=== PATIENT | male | born 1940 | race Caucasian/White ===

== ENCOUNTER 2017-12-05 15:14 | Emergency (ER) | payer OTHER ==
[2017-12-05 15:30] VITALS: TEMP 97.6; BMI 33.0
--- NOTE | 2017-12-05 15:33 | PDOC ---
Rapid Medical Evaluation Chief Complaint: Hematuria Time Seen by Provider: 12/05/17 15:28 Medical Evaluation: Allergies Allergy/AdvReac Type Severity Reaction Status Date / Time No Known Drug Allergies Allergy Verified 12/05/17 15:28 12/05/17 15:32 pt with c/o: hematuria x 1 week, no pain, no clots, no abd pain, no bph or cancer hx pt on exam: afebrile, tachy 105 Pt ordered for type and screen, cbc,c omp, ua , ucx Pt to proceed to the ED 12/05/17 15:36 Discharge Disposition - Diagnosis Hematuria - Referrals - Patient Instructions - Post Discharge Activity
[2017-12-05 16:20] LABS: BASO % 0.6 % (0-2.0); EOS % 2.5 % (0-4.5); HEMATOCRIT 38.9 % (35.4-49); HEMOGLOBIN 12.7 GM/dL (11.7-16.9); LYMPH % 19.1 % (8-40); MCH 27.6 pg (25.7-33.7); MCHC 32.6 g/dl (32.0-35.9); MEAN CELL VOLUME 84.7 fl (80-96); MEAN PLT VOLUME 11.5 fl (7.5-11.1); MONO % 11.1 % (3.8-10.2); NEUT % 66.7 % (42.8-82.8); PLATELET COUNT 173 K/MM3 (134-434); RDW 15.4 % (11.9-15.9); WHITE BLOOD COUNT 8.3 K/mm3 (4.0-10.0)
[2017-12-05 16:22] LABS: URINE APPEARANCE TURBID; URINE BILIRUBIN NEGATIVE (NEGATIVE); URINE BLOOD 1+ (NEGATIVE); URINE COLOR YELLOW; URINE GLUCOSE (UA) 1+ (NEGATIVE); URINE KETONE NEGATIVE (NEGATIVE); URINE NITRITE NEGATIVE (NEGATIVE); URINE UROBILINOGEN NEGATIVE mg/dL (0.2-1.0)
[2017-12-05 16:23] LABS: URINE LEUK ESTERASE 3+ (NEGATIVE); URINE PROTEIN 1+ (NEGATIVE)
[2017-12-05 16:37] LABS: EPI CELLS RARE /HPF (FEW); URINE BACTERIA MANY /hpf (NONE SEEN); URINE MUCUS RARE
[2017-12-05 17:06] LABS: ALBUMIN 3.8 g/dl (3.4-5.0); BLOOD UREA NITROGEN 21 mg/dL (7-18); CALCIUM 8.4 mg/dL (8.5-10.1); GLUCOSE,RANDOM 232 mg/dL (74-106)
[2017-12-05 17:27] LABS: BILIRUBIN,TOTAL 0.4 mg/dL (0.2-1.0); CO2 22 mmol/L (21-32); SGOT/AST 18 U/L (15-37); SGPT/ALT 29 U/L (12-78); TOT PROT 7.6 g/dl (6.4-8.2)
[2017-12-05 17:28] LABS: ALK PHOS 87 U/L (45-117)
[2017-12-05 17:31] LABS: PLATELET ESTIMATE ADEQUATE
--- NOTE | 2017-12-05 17:54 | PDOC ---
History of Present Illness - General Chief Complaint: Hematuria Stated Complaint: BLOOD IN URINE Time Seen by Provider: 12/05/17 15:28 History Source: Patient Exam Limitations: No Limitations - History of Present Illness Travel History: No Initial Comments: 12/05/17 18:47 77y M hx of dm, htn, bph, presents with hematuria, burning on urination. The patient states that last Monday he had one episode of dysuria at the end of screen and then improved/resolved until Monday when he had another episode of urine that he noticed sick brown discharge as well as dysuria at the end of urination. She does endorse mild dysuria since. The patient denies any fever, chills, nausea, vomiting, abdominal pain, back pain, flank pain, chest pain, shortness of breath. he and states he is not currently sexually active No prior history of UTI or no recent urologic procedures Past History - Past Medical History Allergies/Adverse Reactions: Allergies Allergy/AdvReac Type Severity Reaction Status Date / Time No Known Drug Allergies Allergy Verified 12/05/17 15:28 Home Medications: Ambulatory Orders Unobtainable [Unobtainable] 12/05/17 Anemia: Yes Asthma: No Cancer: No Cardiac Disorders: No CVA: No COPD: No CHF: No Dementia: No Diabetes: Yes (NIDDM) GI Disorders: No Disorders: Yes (BPH) HTN: Yes Hypercholesterolemia: Yes Liver Disease: No Seizures: No Thyroid Disease: No - Surgical History Abdominal Surgery: Yes Appendectomy: Yes Cardiac Surgery: No Cholecystectomy: No Lung Surgery: No Neurologic Surgery: No Orthopedic Surgery: No - Suicide/Smoking/Psychosocial Hx Smoking History: Never smoked Have you smoked in the past 12 months: No Hx Alcohol Use: No Drug/Substance Use Hx: No Substance Use Type: None Hx Substance Use Treatment: No Review of Systems - Review of Systems Able to Perform ROS?: Yes Comments:: 12/05/17 18:48 Constitutional - no reported Fever, Chills, HEENT: no reported vision changes, sore throat Respiratory: no reported cough, sob, hemoptysis Cardiac: no reported chest pain, palpitations, light headedness, leg swelling Abd/GI: no reported abd pain, nausea, vomiting, blood per rectum, melena, diarrhea : +dysuria, discharge no reported frequency Musculskelatal - no reported back pain, joint swelling skin - no reported bruising, erythema, rash neurological: no reported headache, numbness, focal weakness, tingling, ataxia, hematologic: no reported anemia, easy bruising, easy bleeding *Physical Exam - Vital Signs Last Vital Signs Temp Pulse Resp BP Pulse Ox 97.6 F 107 H 20 131/81 96 12/05/17 15:28 12/05/17 15:28 12/05/17 15:28 12/05/17 15:28 12/05/17 15:28 - Physical Exam Comments: 12/05/17 18:50 GENERAL: The patient is awake, alert, and fully oriented, Nontoxic - in no acute distress. HEAD: Normocephalic, atraumatic. EYES: extraocular movements intact, sclera anicteric, conjunctiva clear. ENT: Normal voice, Moist mucous membranes. NECK: Normal range of motion, supple LUNGS: Breath sounds equal, clear to auscultation bilaterally. No wheezes, no rhonchi, no rales. HEART: Regular rate and rhythm, normal S1 and S2 without murmur, rub or gallop. ABDOMEN: Soft, nontender, normoactive bowel sounds. No guarding, no rebound. . No CVA tenderness EXTREMITIES: Normal range of motion, no edema. No clubbing or cyanosis. No cords, erythema, or tenderness. NEUROLOGICAL: No facial assymetry, Normal speech, PSYCH: Normal mood, normal affect. SKIN: Warm, Dry, normal turgor, ED Treatment Course - LABORATORY CBC & Chemistry Diagram: 12/05/17 16:00 12/05/17 16:00 - ADDITIONAL ORDERS Additional order review: Laboratory Results 12/05/17 12/05/17 16:00 16:00 Urine Color Yellow Urine Appearance Turbid Urine pH 5.0 Ur Specific Telephone 1.014 Urine Protein 1+ H Urine Glucose (UA) 1+ H Urine Ketones Negative Urine Blood 1+ H Urine Nitrite Negative Urine Bilirubin Negative Urine Urobilinogen Negative Ur Leukocyte Esterase 3+ H Urine WBC (Auto) 2682 Urine RBC (Auto) 4 Ur Epithelial Cells Rare Urine Bacteria Many Urine Mucus Rare Blood Type A POSITIVE Antibody Screen Negative 12/05/17 16:00 RBC 4.60 MCV 84.7 MCHC 32.6 RDW 15.4 MPV 11.5 H Neutrophils % 66.7 Lymphocytes % 19.1 D Monocytes % 11.1 H Eosinophils % 2.5 Basophils % 0.6 Medical Decision Making - Medical Decision Making 12/05/17 17:53 77y M dm, htn, bph, presenting with hematuria/burning. started last week x 1 on , then continued on monday with brown thick discharge at the end of urination but has since fine. no fever/chills, n/v, abd pain, back pain, diarrhea, cp, sob, The patient's labs reviewed patient's UA suggestive of UTI Will notify PMD, will anticipate discharge with by mouth antibiotics 12/05/17 19:[address] sher agree with management will dc the pt with pmd fu and outpatient abx return precautions were discussed *DC/Admit/Observation/Transfer Diagnosis at time of Disposition: Urinary tract infection Qualifiers: Urinary tract infection type: site unspecified Hematuria presence: with hematuria Qualified Code(s): N39.0 - Urinary tract infection, site not specified ; R31.9 - Hematuria, unspecified; R31.9 - Hematuria, unspecified - Discharge Dispostion Disposition: HOME Condition at time of disposition: Improved Admit: No - Referrals Referrals: Ion Sher MD [Staff Physician] - - Patient Instructions Printed Discharge Instructions: DI for Urinary Tract Infection (UTI) Additional Instructions: Return to the Emergency department if you have any fever/chills, back pain, abdominal pain o r any concerns. You have a urinary tract infection. Take the antibiotics as prescribed. Follow up with dr. Sher in 2-3 days for reevaluation. Print Language: GREEK - Post Discharge Activity
[2017-12-05] MEDS ORDERED: CEFTRIAXONE 1 GM in DEXTROSE 5%-WATER - 50 ML IVPB ONE (17:55)
[2017-12-05 17:58] LABS: ANION GAP 11 (8-16); CHLORIDE 106 mmol/L (98-107); POTASSIUM 4.1 mmol/L (3.5-5.1); SODIUM 139 mmol/L (136-145)
[2017-12-05] MEDS ORDERED: CEPHALEXIN MONOHYDRATE 500 MG CAPSULE (UD) PO ONE (18:15)
[2017-12-05] MEDS ORDERED: CEFTRIAXONE 1 GM/50 ML BAG ONE (18:25)
[2017-12-05] MEDS ORDERED: CEPHALEXIN MONOHYDRATE 250 MG CAPSULE (FP) ONE (18:25)
[2017-12-05 18:32] VITALS: BP 132/75; PULSE 91
== END 2017-12-05 19:42 | disposition home or self-care (01) ==
LOC: JER 15:14
DX: N39.0 Urinary tract infection, site not specified (principal); R31.9 Hematuria, unspecified; N40.0 Benign prostatic hyperplasia without lower urinary tract symptoms; I10 Essential (primary) hypertension; E78.00 Pure hypercholesterolemia, unspecified; E11.9 Type 2 diabetes mellitus without complications; Z79.84 Long term (current) use of oral hypoglycemic drugs
CPT/HCPCS: 36415; 80053; 81003; 81015; 85025; 86850; 86900; 86901; 87086; 87186; 99283-25

== ENCOUNTER 2018-07-30 06:31 | Day surgery (SDC) | payer OTHER ==
[2018-07-27 15:37] VITALS: BMI 29.8
[2018-07-30] MEDS ORDERED: SUCCINYLCHOLINE CHLORIDE 200 MG/10 ML VIAL ONE (07:59)
[2018-07-30] MEDS ORDERED: PROPOFOL 20 ML ONE ×2 (08:00)
[2018-07-30] MEDS ORDERED: DEXAMETHASONE SOD PHOSPHATE 4 MG/1 ML VIAL ONE (08:51)
[2018-07-30] MEDS ORDERED: LIDOCAINE HCL/PF 2% SDV 5ML VIAL ONE (08:51)
[2018-07-30] MEDS ORDERED: oxyCODONE HCL 5 MG TABLET PO PRN (09:32)
[2018-07-30] MEDS ORDERED: ONDANSETRON 4 MG/2 ML VIAL IVPUSH PRN (09:32)
[2018-07-30] MEDS ORDERED: ACETAMINOPHEN 1000 MG/100 ML VIAL (NON FORMULARY) IVPB ONE (09:34)
[2018-07-30] MEDS ORDERED: ACETAMINOPHEN INJECTION 100 ML IVPB ONE (10:22)
--- NOTE | 2018-07-30 11:55 | OP ---
Operative Note - Note: Operative Date: 07/30/18 Pre-Operative Diagnosis: bph Operation: transurethral resection and vaporization of the prostate Findings: 3+ obstructive prostate with 2-3+ bladder trabeculation Post-Operative Diagnosis: Same as Pre-op Surgeon: Osmin Schwarz Anesthesia: General Specimens Removed: prostatic chips Operative Report Dictated: Yes
[2018-07-30 12:16] VITALS: TEMP 97.5
[2018-07-30 13:48] VITALS: BP 128/64; PULSE 90
--- NOTE | 2018-07-30 20:33 | OP ---
DATE OF OPERATION: 07/30/2018 PREOPERATIVE DIAGNOSIS: Benign prostatitic hypertrophy. POSTOPERATIVE DIAGNOSIS: Benign prostatitic hypertrophy. PROCEDURE: Transurethral resection, transurethral vaporization of the prostate using bipolar system. ATTENDING: Vanessa Schwraz MD ANESTHESIA: General. DESCRIPTION OF OPERATION: The patient was brought in the operating room, placed in supine position on the operating room table. Anesthesia and preoperative antibiotics were administered without complications. Patient was then placed in the dorsal lithotomy position and prepped and draped in the usual sterile manner. A resectoscope was placed under visualization into the bladder. The bladder was investigated and noted to have no evidence of stones or neoplasm. A 3+ obstructive prostate was noted. Resection of the prostate in order to debulk the prostate was performed initially. The margins of the resection were the bladder neck proximally and the verumontanum distally. The resection was performed in a 360-degree fashion. The resection was taken down to the level of the pseudocapsule of the prostate. Once this was performed, all prostatic chips were evacuated from the bladder utilizing the [employer] evacuator. At this point, the working element, which had been the loop, was changed to a button. Vaporization and cauterization was then ensured utilizing the button element of the bipolar system. Residual tissue was vaporized, and excellent hemostasis was attained within the prostatic fossa. The margins of the vaporization and cauterization were the bladder neck proximally and the verumontanum distally. This was done again in a 360-degree fashion. Excellent hemostasis was attained. The bladder was investigated and noted to have no evidence of residual prostatic tissue. There was no evidence of perforation of the bladder. The abdomen was soft on examination during the procedure. With excellent hemostasis, the resectoscope was removed, and a Patton catheter placed, 30 mL were inflated into the balloon of the catheter and placed on light traction. Excellent drainage was noted which was light pink in color. The disposition of the patient was to the recovery room. The catheter had been placed to straight drainage. The patient will be observed in the recovery room and the postop area. If the patient continues to do well, he will be discharged home. VANESSA MENDEZ M.D. [id number]
--- NOTE | 2018-08-01 09:51 | PATH ---
Surgical Pathology Report Patient Name: ARMAND ECHAVARRIA [facility]. Rec. #: [id number] /Age/Gender: 1940 (Age: 78) / M Account: [id number] Location: U SURGICAL Taken: 07/30/2018 Received: 07/30/2018 Reported: 08/01/2018 Physicians: Osmin Schwarz Specimen(s) Received PROSTATE CHIPS Clinical History BPH with lower urinary tract symptoms Final Diagnosis PROSTATE, TRANSURETHRAL RESECTION OF PROSTATE: BENIGN PROSTATIC TISSUE WITH FOCAL CHRONIC INFLAMMATION, ACINAR ATROPHY, CYSTIC CHANGES, GLANDULAR AND STROMAL HYPERPLASIA. Electronically Signed Valerie Morales M.D. Gross Description Received in formalin labeled "prostate chips " are multiple fragments of pink-monte fibrous tissue consistent with prostate tissue which weigh 22 g and measures 6 x 6 x 2 cm in aggregate. The entire specimen is submitted in 7 cassettes. MLSZ/07/30/2018 sanml/07/30/2018
== END 2018-07-30 13:35 | disposition home or self-care (01) ==
LOC: JASU-SURG 06:31
PROVIDERS: ATTEND Urology
PROC: 0VT08ZZ Resection of Prostate, Via Natural or Artificial Opening Endoscopic (ICD-10-PCS; principal; 2018-07-30 11:00)
DX: N40.1 Benign prostatic hyperplasia with lower urinary tract symptoms (principal); R35.0 Frequency of micturition
CPT/HCPCS: 82962; 88305-TC; 94760; J0131